=== PATIENT | female | born 1970 | race Two or more races ===

== ENCOUNTER 2017-02-14 09:45 | Day surgery (SDC) | payer OTHER ==
[2017-02-14] MEDS ORDERED: LIDOCAINE 1% 300 MG/30 ML SDV IF ONE (10:15)
--- NOTE | 2017-02-14 11:17 | EPPROC ---
Electrophysiology Procedure Note: Procedure: LINQ implant Indication: Presyncope and lightheadedness of unknown etiology Procedure: Pt scrubbed and draped using usual technique. LA given, incision placed (vertical placement due to breast implants). Using usual technique, LINQ implanted. Chloé placed, dry sterile dressing placed. Conclusion: Successful LINQ implanted.
== END 2017-02-14 12:00 | disposition home or self-care (01) ==
LOC: FCATH 09:45
PROVIDERS: ATTEND Internal Medicine Cardiovascular Disease
PROC: 0JH63PZ Insertion of Cardiac Rhythm Related Device into Chest Subcutaneous Tissue and Fascia, Percutaneous Approach (ICD-10-PCS; principal; 2017-02-14)
DX: I47.1 Supraventricular tachycardia (principal)
CPT/HCPCS: C1764

== ENCOUNTER 2018-01-10 07:05 | Day surgery (SDC) | payer OTHER ==
[2018-01-10] MEDS ORDERED: LIDOCAINE 1% 300 MG/30 ML SDV SC ONE (07:10)
--- NOTE | 2018-01-10 08:21 | PDHPUP ---
History & Physical Update H&P update statement: This history and physical update is based on an assessment of the patient which was completed after admission or registration (within 24 hours), but prior to the surgery/procedure. H&P update: H&P reviewed & patient examined, no change in patient's condition since H&P completed
[2018-01-10] MEDS ORDERED: LIDOCAINE/PRILOCAINE 1 EACH CRTUBE TP ONE (08:33)
--- NOTE | 2018-01-10 16:38 | EPPROC ---
Electrophysiology Procedure Note: Procedure: LINQ explant Indication: End of utility of LINQ Procedure: Parts prepared and draped. Emla cream applied. LA given. Incision placed. LINQ extracted. Hemostasis achieved. [place] placed. Dry sterile dressing placed. Conclusion: Successful LINQ explant
== END 2018-01-10 09:10 | disposition home or self-care (01) ==
LOC: FCATH 07:05
PROVIDERS: ATTEND Internal Medicine Cardiovascular Disease
PROC: 0JPT02Z Removal of Monitoring Device from Trunk Subcutaneous Tissue and Fascia, Open Approach (ICD-10-PCS; principal; 2018-01-10)
DX: Z45.09 Encounter for adjustment and management of other cardiac device (principal); H53.8 Other visual disturbances; I49.9 Cardiac arrhythmia, unspecified

== ENCOUNTER 2018-01-13 11:34 | Emergency (ER) | payer OTHER ==
--- NOTE | 2018-01-13 11:59 | EDPHY ---
H & P Time Seen by Provider: 01/13/18 11:44 HPI/ROS: CHIEF COMPLAINT: Dizziness, nausea, vomiting HISTORY OF PRESENT ILLNESS: Patient is a 48-year-old female who presents emergency department multiple complaints. She states she has a mild headache. She has had lightheadedness, dizziness, nausea and vomiting. Patient states the dizziness and lightheadedness is been going on for months. She reports that she had an ablation last year but that her heart rate has been going "too low." She recently had a school lunch monitor placed and subsequently removed under anesthesia on Saturday. Last week the patient also had an upper endoscopy with anesthesia and biopsy. On she underwent dental work with a crown replacement. At that time she also received anesthesia. When she received this anesthesia she became quite shaky. She feels this may be related to receiving anesthesia numerous times last week. Patient has had numerous episodes of nonbloody emesis. She denies chest pain. No abdominal pain. She does report nonbloody diarrhea. Patient went to see her primary care physician, Dr. Short, earlier today. She was sent to the emergency department for further evaluation. REVIEW OF SYSTEMS: My complete review of systems is negative except as mentioned in the HPI. Past Medical/Surgical History: Includes PSVT, asthma, cystocele, GERD, rash Past surgical history: Includes cardiac ablation, bladder surgery, breast augmentation, hysterectomy, Lasix, septoplasty Family history: Hypertension and brain neoplasm Smoking Status: Never smoked Physical Exam: Vitals noted GENERAL: No acute distress, alert. HEENT: Eyes normal to inspection, normal pharynx, no signs of dehydration. No nystagmus. Fake eyelashes NECK: No thyromegaly, no lymphadenopathy, supple. RESPIRATORY: Clear to auscultation bilaterally, no rales, rhonchi or wheezing. Chest: Patient has a small surgical incision with luis daniel on the left anterior chest. This appears clean, dry and intact. There is no cyst erythema or mass. CVS: Regular rate and rhythm, no rubs, murmurs, or gallops. ABDOMEN: Soft, nontender, nondistended, no organomegaly. BACK: Normal to inspection, no CVA tenderness. SKIN: Normal color, no rash, warm, dry. No pallor. EXTREMITIES: No pedal edema, no calf tenderness, no Homans sign or cords, no joint swelling. NEURO/PSYCH: Higher functions: Alert and Oriented x3. Normal speech and cognition. Normal mood and affect. Cranial nerves: Normal as tested. Cerebellar: Normal as tested. Good finger to nose, good [id number], normal gait. Peripheral exam: Normal motor exam. Normal sensation. Normal reflexes. Constitutional: Initial Vital Signs Temperature (C) 36.6 C 01/13/18 11:40 Heart Rate 71 01/13/18 11:40 Respiratory Rate 18 01/13/18 11:40 Blood Pressure 126/83 H 01/13/18 11:40 O2 Sat (%) 97 01/13/18 11:40 O2 Delivery Mode Room Air Allergies/Adverse Reactions: No Known Allergies Allergy (Unverified 06/01/14 22:56) Home Medications: Medication Instructions Recorded Acetaminophen [Tylenol 325mg (*)] 325 - 650 mg PO Q4HRS PRN #0 tab 05/04/16 Omeprazole 40 mg PO HS #30 capsule. 05/04/16 Ondansetron Odt [Zofran Odt 4 mg 4 mg PO Q4PRN PRN #7 tab 01/13/18 (*)] Medical Decision Making - Diagnostics Imaging Results: Imaging Impressions Head CT 01/13/18 11:56 Impression: No acute intracranial process. Chest X-Ray 01/13/18 12:02 Impression: Mild scarring or atelectasis at the left lung base. ED Course/Re-evaluation: In the emergency department I met the patient on arrival. I reviewed the note from Dr. Short. It states in her HPI the patient appears pale and diaphoretic. Of note, when she arrived to the emergency department she did not appear pale or diaphoretic on my exam. I discussed possible etiologies with the patient. I answered all her questions. IV was placed. Laboratory studies, EKG and head CT were ordered. Patient's white count was 6.8. Hematocrit was 41.6. Platelets were 350. Chemistry panel and LFTs were unremarkable. Troponin was negative. EKG shows normal sinus rhythm, normal rate, normal axis, normal intervals. There are no ST or T-wave abnormalities. EKG is normal as interpreted by me. Head CT: Please refer the dictated report. No acute disease. Chest x-ray: No acute disease. I rechecked the patient. She was doing well. She states she is feeling much better. She had no complaints at this time. She requested Zofran prior to discharge. She is given warnings prior to leaving. Differential Diagnosis: My differential includes but is not limited to ACS, acute TN, dysrhythmia, electrolyte abnormality, sugar abnormality, dehydration, ischemic CVA, hemorrhagic CVA, dissection, aneurysm, fractures diarrhea, enteritis, gastroenteritis, perforation - Data Points Laboratory Results: 01/13/18 01/13/18 12:10 12:07 POC Sodium 138 mEq/L mEq/L (135-145) POC Potassium 3.8 mEq/L mEq/L (3.3-5.0) POC Chloride 101.0 mEq/L mEq/L (97-110) POC Total CO2 26 mEq/L mEq/L (22-31) POC BUN 9 mg/dL mg/dL (7-23) POC Creatinine 0.9 mg/dL mg/dL (0.6-1.0) POC Glucose 91 mg/dL mg/dL (70-100) POC Calcium 9.5 mg/dL mg/dL (8.5-10.4) POC Total Bilirubin 0.9 mg/dL mg/dL (0.1-1.4) POC AST 34 IU/L IU/L (14-46) POC ALT 24 IU/L IU/L (9-52) POC Alk Phosphatase 58 IU/L IU/L (38-126) POC Troponin I 0.00 ng/mL ng/mL (0.00-0.08) POC Total Protein 8.0 g/dL g/dL (6.3-8.2) POC Albumin 3.9 g/dL g/dL (3.5-5.0) Medications Given: Discontinued Medications Meclizine HCl (Meclizine Hcl) 25 mg PO EDNOW ONE Stop: 01/13/18 12:26 Last Admin: 01/13/18 12:57 Dose: 25 mg Ondansetron HCl (Zofran) 4 mg IVP EDNOW ONE Stop: 01/13/18 12:03 Last Admin: 01/13/18 12:16 Dose: 4 mg Point of Care Test Results: CBC CBC Collection Date 01/13/18 CBC Collection Time 11:45 WBC 6.8 RBC 4.61 HGB 13.8 HCT 41.6 PLT 350 Neut # 4.6 Neut 66.9 LYMPH # 1.6 LYMPH 23.7 Other WBC # 0.6 Other WBC 9.4 MCV 90.2 Chemistry 01/13/18 01/13/18 12:10 12:07 POC Sodium 138 mEq/L mEq/L (135-145) POC Potassium 3.8 mEq/L mEq/L (3.3-5.0) POC Chloride 101.0 mEq/L mEq/L (97-110) POC Total CO2 26 mEq/L mEq/L (22-31) POC BUN 9 mg/dL mg/dL (7-23) POC Creatinine 0.9 mg/dL mg/dL (0.6-1.0) POC Glucose 91 mg/dL mg/dL (70-100) POC Calcium 9.5 mg/dL mg/dL (8.5-10.4) POC Total Bilirubin 0.9 mg/dL mg/dL (0.1-1.4) POC AST 34 IU/L IU/L (14-46) POC ALT 24 IU/L IU/L (9-52) POC Alk Phosphatase 58 IU/L IU/L (38-126) POC Troponin I 0.00 ng/mL ng/mL (0.00-0.08) POC Total Protein 8.0 g/dL g/dL (6.3-8.2) POC Albumin 3.9 g/dL g/dL (3.5-5.0) Urine Dip Collection Date 01/13/18 Collection Time 12:59 Specific [place] (1.002-1.030) 1.015 PH (5.0-7.5) 7.0 Leukocytes (Negative) Trace Nitrites (Negative) Positive Protein (Negative) Negative Glucose (Negative) Negative Ketones (Negative) Negative Urobilnogen (0.2-1.0 EU) 0.2 Bilirubin (Negative) Negative Blood (Negative) Trace Departure - Departure Disposition: Home, Routine, Self-Care Clinical Impression: Lightheadedness, Dizziness Vomiting Qualifiers: Vomiting type: unspecified Vomiting Intractability: non-intractable Nausea presence: with nausea Qualified Code(s): R11.2 - Nausea with vomiting, unspecified Condition: Good Instructions: Dizziness (ED), Lightheadedness (ED) Additional Instructions: Return with increasing headache, dizziness, lightheadedness, chest pain or any shortness of breath. Referrals: Angy Avitia DO [Primary Care Provider] - 2-3 days, call for appt. Prescriptions: Ondansetron Odt [Zofran Odt 4 mg (*)] 4 mg PO Q4PRN PRN #7 tab PRN Reason: For Nausea & Vomiting
[2018-01-13] MEDS ORDERED: ONDANSETRON 4 MG/2 ML VIAL IVP ONE (12:02)
[2018-01-13] MEDS ORDERED: MECLIZINE HCL 25 MG TAB PO ONE (12:25)
--- NOTE | 2018-01-13 13:31 | CPEKG ---
Heart Rate: 68 RR Interval: 882 P-R Interval: 148 QRSD Interval: 82 QT Interval: 420 QTC Interval: 447 P [place]: 66 QRS [place]: -23 T Wave [place]: 33 EKG Severity - BORDERLINE ECG - EKG Impression: SINUS RHYTHM EKG Impression: PROBABLE LEFT ATRIAL ABNORMALITY EKG Impression: BORDERLINE LEFT AXIS DEVIATION EKG Impression: BORDERLINE T ABNORMALITIES, ANTERIOR LEADS Electronically Signed By: Jennifer Hampton 13-Jan-2018 14:43:41
[2018-01-13 13:41] VITALS: BP 134/62
== END 2018-01-13 14:36 | disposition home or self-care (01) ==
LOC: CED 11:34
DX: R11.2 Nausea with vomiting, unspecified (principal); R42 Dizziness and giddiness; J45.909 Unspecified asthma, uncomplicated
CPT/HCPCS: 70450-PO; 71046-PO; 80053-PO; 84484-PO; 96374; J2405

== ENCOUNTER → 2018-04-10 | Outpatient (CLI) | payer OTHER | LOC: CIMAGING 07:58 | PROVIDERS: ATTEND Family Medicine | DX: Z12.31 Encounter for screening mammogram for malignant neoplasm of breast (principal) ==

== ENCOUNTER → 2018-05-08 | Outpatient (CLI) | payer OTHER ==
--- NOTE | 2018-05-08 14:54 | PDCARST ---
CAR Stress Test Results Type of Stress Test: Stress echo Indication: abnormal ECG/preop/presyncope Description of Procedure: After informed consent was obtained, pt was exercised according to Yasmany Protocol. Monitoring was performed with standard stress milk tester electrode placement. Vital signs were monitored according to protocol throughout the procedure. Both pre- and post-exercise, she had echo imaging performed. STRESS EKG AND HEMODYNAMIC DATA. Exercise time: 8:40 min. This is equivalent to: 9.8 METS. Resting heart rate: 107 bpm. Resting blood pressure: 96/64 mmHg. Resting O2 saturation: 95 %. Peak heart rate: 165 bpm. This is 96% of age predicted maximum heart rate response. Peak blood pressure: 134/68 mmHg. Exercise O2: 94 %. Arrhythmias: None. Reason for termination: The test was stopped due to maximal effort. Symptoms: The patient experienced no typical symptoms of angina during stress or recovery. Impression: STRESS TEST ANALYSIS. Baseline ECG: ST 107 (low voltage due modified lead placement for stress echo). Stress ECG: ST with no ischemic changes. Rhythm: No arrhythmias noted during exercise and recovery. Blood pressure: Normal to slightly blunted blood pressure response to exercise. Exercise tolerance: The patient has normal exercise tolerance adjusted for age and gender. Symptoms: No exercise induced symptoms. IMPRESSIONS: Stress ECG is negative for ischemia. The Bashir Treadmill Score is +8, consistent with low cardiovascular risk (<1% annual mortality). Conclusion: Low risk TM stress test with mildly blunted BP response. Stress echo report will be dictated separately.
--- NOTE | 2018-05-09 17:13 | ECHO ---
[email or web address] [place] [id number] Main: [phone] Fax: Stress Echocardiogram Name: LAILA NAVAS MR#: [id number] Study Date: 05/08/2018 Study Time: 01:57 PM Date of : 1970 Age: 48 year(s) Height: ( ) Weight: ( ) BSA: Gender: Female Examination: Stress Echo Indication: Pre op clearance/abnormal EKG Image Quality: Contrast: Requested by: Deshaun Huynh Heart Rate: Rhythm: BP: / Procedure Staff Eyeglass Lens Generator: Yohana Sheppard RDCS Reading Physician: José Manuel Park MD Requesting Provider: Conclusions: Stress ECG Findings: Exercise time 8 minutes 40 seconds of the Yasmany protocol reaching 96% MPHR without chest pain or ECG changes. Stress Echo Findings: Normal LV systolic function and regional wall motion at rest and post-exercise. Findings: Stress ECG Findings: Resting ECG: Normal ST Changes: None Chest Pain: None Arrhythmias: none Stress Echo Findings: No wall motion abnormalities visualized at rest or with stress. (No Signature Object) Patient: LAILA NAVAS Study Date: 05/08/2018 Page 1 of 1 01:57 PM [id number]
== END ==
LOC: FCATH 13:35
PROVIDERS: ATTEND Nurse Practitioner Family
DX: R94.31 Abnormal electrocardiogram [ECG] [EKG] (principal)